=== PATIENT | male | born 1965 | race Caucasian/White ===

== ENCOUNTER → 2023-04-29 17:40 | Outpatient (REF) | payer OTHER, SELFPAY | LOC: RAD 17:40 | PROVIDERS: ATTENDING PHYSICIAN Internal Medicine Critical Care Medicine; FAMILY PHYSICIAN Family Medicine | DX: R91.8 Other nonspecific abnormal finding of lung field (principal) | CPT/HCPCS: 71250 ==

== ENCOUNTER → 2023-05-29 16:38 | Outpatient (REF) | payer OTHER, SELFPAY | LOC: PAVMRI 16:38 | PROVIDERS: ATTENDING PHYSICIAN Orthopaedic Surgery Orthopaedic Surgery of the Spine; FAMILY PHYSICIAN Family Medicine | DX: M54.12 Radiculopathy, cervical region (principal); G95.9 Disease of spinal cord, unspecified | CPT/HCPCS: 70551; 72141 ==

== ENCOUNTER → 2023-09-12 09:14 | Outpatient (REF) | payer OTHER, SELFPAY | LOC: MRI 3T 09:14 | PROVIDERS: ATTENDING PHYSICIAN Family Medicine | DX: G47.00 Insomnia, unspecified (principal); G25.81 Restless legs syndrome; R42 Dizziness and giddiness | CPT/HCPCS: 70553; A9575 ==

== ENCOUNTER → 2025-01-23 08:07 | Outpatient (REF) | payer OTHER, SELFPAY | LOC: PAVMRI 08:07 | PROVIDERS: ATTENDING PHYSICIAN Physician Assistant Medical | DX: M48.02 Spinal stenosis, cervical region (principal) | CPT/HCPCS: 72141 ==